=== PATIENT | male | born 1985 | race African-American/Black ===

== ENCOUNTER 2018-12-25 13:40 | Emergency (ER) | payer OTHER ==
[~2018-12-25] VITALS: Ht 180.3 cm; Wt 114.0 kg
[2018-12-25] MEDS ORDERED: DIPHENHYDRAMINE 50MG CAPSULE PO ONE (16:30)
[2018-12-25] MEDS ORDERED: PREDNISONE 20MG TABLET PO ONE (16:30)
[2018-12-25] MEDS ORDERED: FAMOTIDINE 20MG TABLET PO ONE (16:30)
[2018-12-25 17:35] VITALS: BP 130/94
== END 2018-12-25 17:36 | disposition home or self-care (01) ==
LOC: ER 13:40
DX: L50.0 Allergic urticaria (principal); T78.40XA Allergy, unspecified, initial encounter; F12.10 Cannabis abuse, uncomplicated; X58.XXXA Exposure to other specified factors, initial encounter
CPT/HCPCS: 99284; J7512; Q0163